=== PATIENT | female | born 1950 | race Caucasian/White ===

== ENCOUNTER 2023-10-08 12:34 | Emergency (ER) | payer BC, MEDICARE ==
[~2023-10-08] VITALS: Ht 160 cm; Wt 77.9 kg
[2023-10-08] MEDS ORDERED: ACETAZOLAMIDE250 MG PO (12:49)
[2023-10-08] MEDS ORDERED: METOCLOPRAMIDE HCL 10 MG/2 ML SDV IV ONE (13:00)
[2023-10-08 13:02] LABS: PH, VENOUS 7.517 (7.31-7.41)
[2023-10-08 13:03] LABS: BASOPHILS 1.1 % (0-2); EOSINOPHILS 0.2 % (0-6); HEMATOCRIT 44.9 % (35.0-50.0); HEMOGLOBIN 15.3 g/dL (12.0-18.0); LYMPHOCYTES 19.2 % (24-44); MCH 29.4 (27-36); MCHC 34.1 g/dl (30-36); MCV 86.3 fl (81-99); MONOCYTES 3.9 % (0-12); NEUTROPHILS 75.6 % (39-80); PLATELET COUNT 388 K/uL (140-440); RDW 14.2 (10.5-15.0)
[2023-10-08 13:22] LABS: ALBUMIN/GLOBULIN RATIO 1.21 (1.1-2.4); ALKALINE PHOSPHATASE 74 U/L (46-116); ALT (SGPT) 15 U/L (14-59); ANION GAP 20.6 (7-21); AST (SGOT) 11 U/L (15-37); BILIRUBIN, TOTAL 0.8 ng/dL (0.2-1.0); BUN/CREATININE RATIO 17.04 (6.0-28.6); CALCIUM 9.4 mg/dL (8.5-10.1); CARBON DIOXIDE 17 mmol/L (21-32); CHLORIDE 106 mmol/L (98-107); CREATININE, SERUM 0.88 mg/dL (0.55-1.02); GLOMERULAR FILTRATION RATE,EST 69 mL/min (>60); MAGNESIUM 1.9 mg/dL (1.8-2.4); POTASSIUM 3.6 mmol/L (3.5-5.1); PROTEIN, TOTAL 7.3 g/dL (6.4-8.2); UREA NITROGEN 15 mg/dL (7-18)
[2023-10-08 16:34] VITALS: BP 133/67
== END 2023-10-08 16:33 | disposition home or self-care (01) ==
LOC: ED 12:34
PROVIDERS: Emergency Medicine
DX: R11.2 Nausea with vomiting, unspecified (principal); R06.02 Shortness of breath
CPT/HCPCS: 36415; 71046; 80053; 82803; 83735; 84484; 85025; 93005; 93010; 96374; 99285-25; J2765